=== PATIENT | male | born 1990 | race Caucasian/White ===

== ENCOUNTER 2020-01-27 14:46 | Outpatient (CLI) | payer OTHER ==
--- NOTE | 2020-01-27 15:25 | RAD ---
XR Chest Pa Lat STANDARD History: Fever and cough Comparison: None. Findings: Faint peripheral nodular opacities right upper lobe. No pneumothorax or effusion. Cardiac s ilhouette and mediastinal contours are within normal limits. No acute osseous abnormality. Impression: Faint peripheral opacities right upper lobe can be seen with atypical infectious process.
== END 2020-01-27 14:47 | disposition home or self-care (01) ==
LOC: BURRAD 14:46
PROVIDERS: ATTEND Physician Assistant
DX: R05 Cough (principal); R50.81 Fever presenting with conditions classified elsewhere; R91.8 Other nonspecific abnormal finding of lung field
CPT/HCPCS: 71046